=== PATIENT | female | born 1985 | race Caucasian/White ===

== ENCOUNTER 2016-03-04 14:23 | Observation (INO) | payer BC ==
[2016-03-04 15:03] VITALS: BMI 20.7
[2016-03-04 15:18] LABS: AUTOMATED EOSINOPHIL 4.2 % (0-5); AUTOMATED LYMPH 37.1 % (17-44); AUTOMATED MONOCYTE 8.2 % (3-10); AUTOMATED NEUTROPHIL 49.5 % (45-76); MPV 7.2 fL (7.4-10.4)
[2016-03-04 15:39] LABS: BLOOD UREA NITROGEN 14 MG/DL (7-17); CALCIUM 9.6 MG/DL (8.4-10.2); CALCULATED OSMOLALITY 269 MOs/Kg (270-290); CHLORIDE 102 mEq/L (98-107); ETOH-MGDL < 10 mg/dL; GLUCOSE 92 MG/DL (70-99); SODIUM LEVEL 139 mEq/L (137-146); TOTAL PROTEIN 7.3 G/DL (6.3-8.2)
[2016-03-04 15:40] LABS: ALL NEG? NO
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
[2016-03-04 15:51] LABS: MDMA* NEG (NEGATIVE); METHAMPHETAMINES NEG (NEGATIVE); OXYCODONE *POSITIVE* (NEGATIVE)
[2016-03-04 15:53] LABS: LEUKOCYTES/URINE NEG (NEGATIVE); NITRITE/URINE NEG (NEGATIVE); URINE OCCULT BLOOD NEG (NEG/TRACE)
[2016-03-04] MEDS ORDERED: OXYCODONE HCL 5 MG TABLET PO ONE (16:40)
[2016-03-04] MEDS ORDERED: PREGABALIN 50 MG CAP PO ONE (18:34)
[2016-03-04] MEDS ORDERED: PREGABALIN 100 MG CAP PO ONE (18:34)
[2016-03-04] MEDS ORDERED: Non-Formulary Medication ITEM (Pregabalin [Lyrica] 150 MG) PO SCH (21:00)
[2016-03-04] MEDS ORDERED: BACLOFEN 10 MG TAB PO PRN (21:09)
[2016-03-04] MEDS ORDERED: D AMPHET PO PRN (21:09)
[2016-03-04] MEDS ORDERED: Non-Formulary Medication ITEM (Oxycodone Hcl/Acetaminophen [Percocet 10-325 Mg Tablet] 1 PO PRN (21:09)
[2016-03-04] MEDS ORDERED: [UNRECOGNIZED DRUG - OTHER] PO PRN (21:09)
[2016-03-04] MEDS ORDERED: AMPHET PO PRN (21:09)
[2016-03-04] MEDS ORDERED: AMPHET ASP PO PRN (21:09)
[2016-03-04] MEDS ORDERED: Aluminum;Magnesium;Simethicone 30 ML UDC PO PRN (21:12)
[2016-03-04] MEDS ORDERED: ZOLPIDEM TARTRATE 5 MG TAB PO PRN (21:12)
[2016-03-04] MEDS ORDERED: MAGNESIUM HYDROXIDE 30 ML BOTTLE PO PRN (21:12)
[2016-03-04] MEDS ORDERED: OXYCODONE HCL 5 MG TABLET PO PRN (21:16)
[2016-03-04] MEDS ORDERED: NICOTINE 21 MG PATCH TOP SCH (22:00)
[2016-03-04] MEDS ORDERED: OXYCODONE (OxyCONTIN) 20 MG TAB PO ONE (22:20)
[2016-03-04 22:24] VITALS: BP 114/83; PULSE 95; TEMP 97.7
[2016-03-05] MEDS ORDERED: DIAZEPAM 5 MG TAB PO SCH (06:00)
[2016-03-05] MEDS ORDERED: AMPHETAMINE PO SCH (09:00)
[2016-03-05] MEDS ORDERED: DEXTROAMPHETAMINE PO SCH (09:00)
[2016-03-05] MEDS ORDERED: [UNRECOGNIZED DRUG - OTHER] PO SCH (09:00)
[2016-03-05] MEDS ORDERED: OXYCODONE (OxyCONTIN) 20 MG TAB PO SCH (09:00)
== END 2016-03-04 22:40 | disposition home or self-care (01) ==
LOC: ED 14:23 → EDINP 18:51 → TUOBSINP 19:48
PROVIDERS: ADMIT Emergency Medicine; ATTEND Emergency Medicine
DX: F22 Delusional disorders (principal); F14.10 Cocaine abuse, uncomplicated; F41.9 Anxiety disorder, unspecified; Z79.899 Other long term (current) drug therapy
CPT/HCPCS: 36415; 80053; 80307; 80320; 81001; 81025; 85025; 86592; 99283; G0378; J3490